=== PATIENT | male | born 1965 | race Caucasian/White ===

== ENCOUNTER 2019-06-09 18:09 | Emergency (ER) | payer OTHER ==
[~2019-06-09] VITALS: Ht 182.9 cm; Wt 99.8 kg
[2019-06-09 18:39] LABS: ABSOLUTE NEUTROPHILS 6.1 thou/uL (1.4-8.2); BASOPHILS 1.2 % (0.0-2.0); EOSINOPHILS 2.1 % (0.0-3.0); HEMATOCRIT 44.5 % (42.0-52.0); HEMOGLOBIN 15.2 gm/dL (14.0-18.0); LYMPHOCYTES 31.2 % (24.0-44.0); MCH 29.7 pg (26.0-34.0); MCHC 34.2 g/dL (28.0-37.0); MCV 86.7 fL (80.0-100.0); MONOCYTES 7.6 % (1.0-8.0); POLYS 57.9 % (36.0-66.0); RBC 5.13 mil/uL (4.50-6.00); RDW 14.5 % (10.5-14.5); WBC 10.5 thou/uL (4.0-11.0)
[2019-06-09 18:44] LABS: CALCIUM 9.6 mg/dL (8.5-10.1); CREATININE 1.3 mg/dL (0.7-1.3); POTASSIUM 3.6 mmol/L (3.5-5.1)
[2019-06-09 19:16] LABS: LARGE PLATELETS RARE; PLATELET COUNT 238 thou/uL (150-400)
[2019-06-09 20:02] LABS: APTT 22.5 Seconds (24.5-32.8); PROTIME 9.6 Seconds (9.3-11.4)
[2019-06-09 20:45] VITALS: BP 131/76
== END 2019-06-09 20:45 | disposition short-term general hospital (02) ==
LOC: ER 18:09
PROVIDERS: Emergency Medicine
DX: S02.121 Fracture of orbital roof, right side (principal); S02.31XB Fracture of orbital floor, right side, initial encounter for open fracture; S42.215A Unspecified nondisplaced fracture of surgical neck of left humerus, initial encounter for closed fracture; S42.252A Displaced fracture of greater tuberosity of left humerus, initial encounter for closed fracture; I10 Essential (primary) hypertension; J45.909 Unspecified asthma, uncomplicated; W11.XXXA Fall on and from ladder, initial encounter; Y92.89 Other specified places as the place of occurrence of the external cause; Y93.89 Activity, other specified; Y99.8 Other external cause status